=== PATIENT | male | born 1975 | race Caucasian/White ===

== ENCOUNTER 2018-11-22 21:12 | Emergency (ER) | payer BC ==
--- NOTE | 2018-11-22 21:56 | EDM.PDOC ---
ED HPI GENERAL MEDICAL PROBLEM - General Chief Complaint: Genitourinary Problem Stated Complaint: PERSONAL Time Seen by Provider: 11/22/18 21:54 Source of Information: Reports: Patient - History of Present Illness INITIAL COMMENTS - FREE TEXT/NARRATIVE: HISTORY AND PHYSICAL: History of present illness: [Patient presents with history of testicular pain 4 months he was seen previously back in May and presents as such is known right inguinal hernia that is nonpainful today easily reducible so far his elected not to repair this No fever nausea vomiting chills sweats no chest pain shortness breath headache dizziness palpitation no bowel or urine symptoms ] Review of systems: As per history of present illness and below otherwise all systems reviewed and negative. Past medical history: As per history of present illness and as reviewed below otherwise noncontributory. Surgical history: As per history of present illness and as reviewed below otherwise noncontributory. Social history: No reported history of drug or alcohol abuse. Family history: As per history of present illness and as reviewed below otherwise noncontributory. Physical exam: HEENT: Atraumatic, normocephalic, pupils reactive, negative for conjunctival pallor or scleral icterus, mucous membranes moist, throat clear, neck supple, nontender, trachea midline. Lungs: Clear to auscultation, breath sounds equal bilaterally, chest nontender. Heart: S1S2, regular, negative for clicks, rubs, or JVD. Abdomen: Soft, nondistended, nontender. Negative for masses or hepatosplenomegaly. Negative for costovertebral tenderness. Pelvis: Stable nontender. Genitourinary: Tenderness though she did with the right testicle, firm in nature no mass or lesion appreciated inguinal hernia noted previously known about, easily reducible Rectal: Deferred. Extremities: Atraumatic, negative for cords or calf pain. Neurovascular unremarkable. Neuro: Awake, alert, oriented. Cranial nerves II through XII unremarkable. Cerebellum unremarkable. Motor and sensory unremarkable throughout. Exam nonfocal. Diagnostics: [UA GC Chlamydia ]Ultrasound scrotum and contents and Doppler flow Therapeutics: []Bactrim Tylenol No. 3 Follow-up with general surgery for inguinal hernia Follow-up primary care or urology for orchitis Impression: [Orchitis Epididymitis ] right inguinal hernia noted Definitive disposition and diagnosis as appropriate pending reevaluation and review of above. Bilateral Scrotum Pain Score (Numeric/FACES): 8 - Related Data Allergies Allergy/AdvReac Type Severity Reaction Status Date / Time No Known Allergies Allergy Verified 11/22/18 21:43 Home Meds: Home Meds . [No Known Home Meds] 11/22/18 [History] Past Medical History - Past Health History Medical/Surgical History: Denies Medical/Surgical History Social & Family History - Family History Family Medical History: Noncontributory - Tobacco Use Smoking Status *Q: Current Every Day Smoker Years of Tobacco use: 14 Packs/Tins Daily: 1 - Alcohol Use Days Per Week of Alcohol Use: 6 Number of Drinks Per Day: 2 Total Drinks Per Week: 12 - Recreational Drug Use Recreational Drug Use: No ED ROS GENERAL - Review of Systems Review Of Systems: See Below ED EXAM, GENERAL - Physical Exam Exam: See Below Course - Vital Signs Last Recorded V/S: Last Vital Signs Temp 98.1 F 11/22/18 21:34 Pulse 84 11/22/18 21:34 Resp 14 11/22/18 21:34 BP 136/88 11/22/18 21:34 Pulse Ox 98 11/22/18 21:34 - Orders/Labs/Meds Orders: Active Orders 24 hr Category Date Time Status CHLAMYDIA AND GONORRHEA BY [facility] Stat Lab 11/22/18 22:50 Received Labs: Laboratory Tests 11/22/18 Range/Units 22:50 Urine Color YELLOW Urine Appearance CLEAR Urine pH 7.0 (5.0-8.0) Ur Specific [place] 1.020 (1.001-1.035) Urine Protein NEGATIVE (NEGATIVE) mg/dL Urine Glucose (UA) NEGATIVE (NEGATIVE) mg/dL Urine Ketones NEGATIVE (NEGATIVE) mg/dL Urine Occult Blood NEGATIVE (NEGATIVE) Urine Nitrite NEGATIVE (NEGATIVE) Urine Bilirubin NEGATIVE (NEGATIVE) Urine Urobilinogen 0.2 (<2.0) EU/dL Ur Leukocyte Esterase NEGATIVE (NEGATIVE) Departure - Departure Time of Disposition: 23:21 Disposition: Home, Self-Care 01 Condition: Good Clinical Impression: Orchitis and epididymitis, Inguinal hernia - Discharge Information Referrals: PCP,None [Primary Care Provider] - Forms: ED Department Discharge Additional Instructions: Medication as prescribed Return if symptoms persist or worsen Follow-up with primary care or urology for orchitis follow- up with general surgery concerning inguinal hernia to discuss repair [facility] - General Surgery Professional Building [address], [address] [place] [address] [facility] - Urology [address] [place] [address] [facility] - Primary Care [address] [place] [id number] The following information is given to patients seen in the emergency department who are being discharged to home. This information is to outline your options for follow-up care. We provide all patients seen in our emergency department with a follow-up referral. The need for follow-up, as well as the timing and circumstances, are variable depending upon the specifics of your emergency department visit. If you don't have a primary care physician on staff, we will provide you with a referral. We always advise you to contact your personal physician following an emergency department visit to inform them of the circumstance of the visit and for follow-up with them and/or the need for any referrals to a consulting specialist. The emergency department will also refer you to a specialist when appropriate. This referral assures that you have the opportunity for follow-up care with a specialist. All of these measure are taken in an effort to provide you with optimal care, which includes your follow-up. Under all circumstances we always encourage you to contact your private physician who remains a resource for coordinating your care. When calling for follow-up care, please make the office aware that this follow-up is from your recent emergency room visit. If for any reason you are refused follow-up, please contact the [place] [facility] emergency department at and asked to speak to the emergency department charge nurse. - My Orders Last 24 Hours: My Active Orders 11/22/18 22:50 CHLAMYDIA AND GONORRHEA BY [facility] Stat - Assessment/Plan Last 24 Hours: My Active Orders 11/22/18 22:50 CHLAMYDIA AND GONORRHEA BY [facility] Stat
--- NOTE | 2018-11-22 23:06 | US ---
Indication: Pain. Technique: An ultrasound of the scrotum was performed. Comparison: None Findings: The right testis measures 5.1 x 2.6 x 3.8 cm in size. There is homogeneous echotexture. No intratesticular masses are identified. Normal color flow is identified. The epididymal head is within normal limits. No clear flow was identified to the epididymal head. No hydrocele or varicocele is identified. The left testis measures 5.2 x 2.4 x 3.1 cm in size. The echotexture is homogeneous. No varicocele or hydrocele is identified. The epididymal head is normal. Normal color flow was identified to the left testis and the left epididymal head. Impression: Normal scrotal ultrasound. Dictated by Duyen Cervantes MD @ Nov 22 2018 11:03PM Signed by Dr. Duyen Cervantes @ Nov 22 2018 11:04PM
--- NOTE | 2018-11-22 23:10 | US ---
Indication: Pain Technique: Ultrasound of the scrotum and contents. Sonographic capellan-scale images were obtained with spectral and color Doppler waveform and spectral waveform analysis of the testicles. Comparison: None Findings: Bother testicles are normal in size and echotexture. No masses. No suspicious calcifications. Normal arterial and venous color Doppler blood flow and spectral waveforms are present in both testicles. Epididymis: Unremarkable bilaterally. Normal blood flow. Other: No sign of hydrocele. No sign of varicocele. Scrotal wall is normal. Impression: Unremarkable ultrasound of the scrotum and contents. Dictated by Scotty Madera MD @ Nov 22 2018 11:06PM Signed by Dr. Scotty Madera @ Nov 22 2018 11:08PM
== END 2018-11-22 23:41 | disposition home or self-care (01) ==
LOC: MW.ED 21:12
DX: K40.90 Unilateral inguinal hernia, without obstruction or gangrene, not specified as recurrent (principal); N45.3 Epididymo-orchitis; F17.210 Nicotine dependence, cigarettes, uncomplicated
CPT/HCPCS: 76870; 76870-26; 81003; 87491; 87591; 93976; 93976-26; 99283; 99284-25